=== PATIENT | male | born 1960 | race Caucasian/White ===

== ENCOUNTER 2021-06-29 16:11 | Emergency (ER) | payer BC ==
[~2021-06-29] VITALS: Ht 180.3 cm; Wt 120.0 kg
--- NOTE | 2021-06-29 16:26 | NUR ---
sent to ED for G tube replacement, tube clogged since last night, pt has hx cva with hemiplegia (right) and aphasia. pt awake, alert and nods/shakes head in response to questions. bp and spo2 monitors in place. call light in reach. flacc score 0. awaiting provider and and order.
[2021-06-29] MEDS ORDERED: MORPHINE SULFATE 4 MG/ML, 1ML ONE (16:54)
[2021-06-29] MEDS ORDERED: ONDANSETRON 2MG/ML, 2ML ONE (16:54)
[2021-06-29] MEDS ORDERED: ONDANSETRON 2MG/ML, 2ML IVPush ONE (17:00)
[2021-06-29] MEDS ORDERED: PLEASE ENTER ALLERGIES MC SCH (17:00)
[2021-06-29] MEDS ORDERED: SODIUM CHLORIDE FLUSH 10ML SYR IVF ONE (17:00)
[2021-06-29] MEDS ORDERED: MORPHINE SULFATE 4 MG/ML, 1ML IVPush PRN (17:00)
--- NOTE | 2021-06-29 17:01 | NUR ---
pt to IR Addendum: 06/29/21 at 1739 by LINDSEY pt to IR, pt medicated prior to departure with morphine 2 mg and zofran 4 mg. oxygen placed at 2L/min via NC prior to depart. pt awake and alert, resps even and unlabored, nadn at transport.
[2021-06-29 17:08] LABS: BASOPHILS % (AUTO) 1 % (0-1); EOSINOPHILS % (AUTO) 4 % (1-7); LYMPHOCYTES % (AUTO) 28 % (22-44); MEAN CORPUSCULAR HEMOGLOBIN 32.2 pg (27.5-34.5); MEAN CORPUSCULAR HGB CONC 33.6 g/dL (33.2-36.2); MEAN PLATELET VOLUME 9.1 fL (7.4-10.4); MONOCYTES % (AUTO) 10 % (2-9); NEUTROPHILS % (AUTO) 57 % (42-75); PLATELET COUNT 214 x10^3/uL (130-400); RED BLOOD COUNT 4.84 x10^6/uL (4.38-5.82); RED CELL DISTRIBUTION WIDTH 13.4 % (9.4-14.8)
[2021-06-29 17:21] LABS: ALANINE AMINOTRANSFERASE 25 U/L (12-78); ALBUMIN 3.3 g/dL (3.4-5.0); ANION GAP 7 mmol/L (5-15); CALCIUM 9.3 mg/dL (8.5-10.1); CHLORIDE 104 mmol/L (98-107); CREATININE 0.66 mg/dL (0.7-1.3)
[2021-06-29 17:23] LABS: ALKALINE PHOSPHATASE 103 U/L (45-117); BILIRUBIN,TOTAL 0.3 mg/dL (0.2-1.0); TOTAL PROTEIN 7.5 g/dL (6.4-8.2)
[2021-06-29] MEDS ORDERED: OMNIPAQUE 350 MG/ML, 100ML BOTTLE ONE (17:59)
--- NOTE | 2021-06-29 18:15 | NUR ---
pt remains in IR
--- NOTE | 2021-06-29 18:24 | NUR ---
pt back from IR
--- NOTE | 2021-06-29 18:44 | NUR ---
ua collected via straight catheter, walked down to lab at this time. pt a&o, resps even and unlabored, nadn, vss.
[2021-06-29 19:02] LABS: MICROSCOPIC AUTO
--- NOTE | 2021-06-29 19:09 | NUR ---
RECEIVED REPORT FROM MAGAN GONZALEZ.
--- NOTE | 2021-06-29 19:20 | NUR ---
REPORT TO RN HERMILA AT BEDSIDE.
--- NOTE | 2021-06-29 20:17 | NUR ---
PT'S ADULT DIAPER REMOVED, MIGUEL-AREA CLEANED. CLEAN CHON PLACED UNDER PT. PT POSITIONED TO COMFORT. DENIES NEEDS AT THIS TIME.
--- NOTE | 2021-06-29 21:13 | NUR ---
G-TUBE DRESSING PLACED. PT TOLERATED PROCEDURE WELL. MAGAN CASTRO ATTEMPTING TO ARRANGE TRANSPORT FOR PT BACK TO FACILITY. EMT TO PLACE SPLINT.
--- NOTE | 2021-06-29 21:15 | NUR ---
PER SHERRY DISPATCH PT LIVES AT [facility] ROOM [address]
--- NOTE | 2021-06-29 21:20 | NUR ---
TRANSPORT REQ FAXED TO EMS.
--- NOTE | 2021-06-29 21:42 | NUR ---
REPORT CALLED TO MAGAN MALAVE AT [facility] TO UPDATE HER ON POC. PT TO BE DC'D BACK TO THE FACILITY VIA [facility] WHEN AVAILABLE. PT ALSO MADE AWARE OF PLAN, EXPRESSED UNDERSTANDING.
[2021-06-29 21:43] VITALS: BP 109/76
--- NOTE | 2021-06-29 21:49 | NUR ---
REPORT FROM HERMILA TRANSFER OF CARE, TECH AT BEDSIDE FOR SPLINT AT THIS TIME
--- NOTE | 2021-06-29 21:51 | NUR ---
REPORT TO MAGAN CASTRO. KATHY AT BEDSIDE TO APPLY SPLINT.
--- NOTE | 2021-06-29 23:07 | NUR ---
REPORT TO EMS PT TRANSFERED BACK TO FACILITY
== END 2021-06-29 23:08 ==
LOC: ED 21:47
DX: S52.591A Other fractures of lower end of right radius, initial encounter for closed fracture (principal); K94.23 Gastrostomy malfunction; R10.84 Generalized abdominal pain; I10 Essential (primary) hypertension; Z86.73 Personal history of transient ischemic attack (TIA), and cerebral infarction without residual deficits; X58.XXXA Exposure to other specified factors, initial encounter; Y93.89 Activity, other specified; Y92.89 Other specified places as the place of occurrence of the external cause; Y99.8 Other external cause status
CPT/HCPCS: 36415; 43762; 73100; 74177; 76000; 80053; 81001; 83605; 83690; 85025; 93971; 96374; 96375; 99285; J2270; J2405; Q9967

== ENCOUNTER 2021-07-19 14:44 | Emergency (ER) | payer BC ==
[~2021-07-19] VITALS: Ht 180.3 cm; Wt 78.0 kg
[2021-07-19] MEDS ORDERED: HYDROcodone/APAP 7.5-325MG/15ML UDC ONE (18:12)
[2021-07-19 18:29] VITALS: BP 115/74
--- NOTE | 2021-07-19 18:51 | NUR ---
REPORT TO [facility] AT [facility]. DR. HOWARD IS ACCEPTING MD. PT TO GO BACK VIA [facility]. PT VERBALIZED UNDERSTANDING OF POC AND DISCHARGE INSTRUCTIONS/EDUCATION.
--- NOTE | 2021-07-19 18:52 | NUR ---
REPORT RECIEVED FROM EDDIE CARRERO
--- NOTE | 2021-07-19 18:55 | NUR ---
REPORT TO MAGAN CRAIG.
[2021-07-19] MEDS ORDERED: HYDROcodone/APAP 7.5-325MG/15ML UDC PO ONE (19:00)
--- NOTE | 2021-07-19 19:40 | NUR ---
PT DISCHARGED TO [facility] VIA [facility]
== END 2021-07-19 19:41 ==
LOC: ED 15:13
DX: G89.11 Acute pain due to trauma (principal); M25.531 Pain in right wrist; I10 Essential (primary) hypertension; Z86.73 Personal history of transient ischemic attack (TIA), and cerebral infarction without residual deficits; X58.XXXA Exposure to other specified factors, initial encounter; Y93.89 Activity, other specified; Y92.89 Other specified places as the place of occurrence of the external cause; Y99.8 Other external cause status
CPT/HCPCS: 99284